=== PATIENT | male | born 1960 | race Caucasian/White ===

== ENCOUNTER 2019-05-16 09:52 | Emergency (ER) | payer OTHER ==
[~2019-05-16] VITALS: Ht 185.4 cm; Wt 104.3 kg
[~2019-05-16 09:52] MED LIST: HCTZ PO; LEVO125T8 PO; LISINOPRIL PO
[2019-05-16 10:00] VITALS: BP_SYST 158
--- NOTE | 2019-05-16 10:00 | NUR ---
Patient to ER bed [08] to gown for evaluation. Side rails up.
--- NOTE | 2019-05-16 10:05 | NUR ---
Pt brought by self, A&Ox4, pt presents to ER with open area and crushed injury on L ring, L middle finger after hand was caught between a chain binder and a bucket,mild bleeding and swelling noted, afebrile , skin pink and warm, cap refill <3 respirations even and unlabored.
[2019-05-16] MEDS ORDERED: DIPH-TET-PERTUS Vaccine 0.5 ML VIAL (ADACEL) I.M. ONE (10:15)
[2019-05-16] MEDS ORDERED: traMADol HCL HCL 50 MG TABLET (ULTRAM) PO ONE (10:15)
[2019-05-16] MEDS ORDERED: IBUPROFEN 600 MG TABLET PO ONE (10:15)
--- NOTE | 2019-05-16 10:15 | NUR ---
Piyush Cobb at bedside examining patient
--- NOTE | 2019-05-16 11:30 | NUR ---
Bleedng on L hand controlled, icepack placed on L hand , well tolerated.
[2019-05-16] MEDS ORDERED: CEFAZOLIN 2 GM IVPB PREMIX 50 ML IV ONE (12:00)
[2019-05-16] MEDS ORDERED: BACITRACIN 1 GM OINT TP ONE ×2 (12:18→13:28)
[2019-05-16] MEDS ORDERED: CEFAZOLIN 1 GM IVPB PREMIX 100 ML IV ONE (12:39)
[2019-05-16 12:42] LABS: BASOPHILS % (AUTO) 0.5 % (0.0-2.0); EOSINOPHILS # (AUTO) 0.1 K/uL (0.0-0.4); EOSINOPHILS % (AUTO) 1.2 % (0.0-4.0); HEMATOCRIT 47.2 % (36-54); HEMOGLOBIN 16.5 g/dL (14.0-18.0); LYMPHOCYTES # (AUTO) 1.4 K/uL (1.0-5.5); LYMPHOCYTES % (AUTO) 15.6 % (20.5-51.5); MEAN CORPUSCULAR HEMOGLOBIN 33 pg (27-31); MEAN CORPUSCULAR HGB CONC 35 % (32-36); MEAN CORPUSCULAR VOLUME 96 fL (79.0-98.0); MONOCYTES # (AUTO) 0.7 K/uL (0.0-1.0); MONOCYTES % (AUTO) 7.5 % (1.7-9.3); NEUTROPHILS # (AUTO) 6.8 K/uL (1.8-7.7); NEUTROPHILS % (AUTO) 75.2 % (40.0-70.0); PLATELET COUNT (AUTO) 202 K/uL (130-430); RED BLOOD CELL COUNT(AUTO) 4.94 MIL/uL (4.2-6.2); RED CELL DISTRIBUTION WIDTH 13.6 % (9.0-15.0); WHITE BLOOD COUNT (AUTO) 9.1 K/uL (4.8-10.8)
--- NOTE | 2019-05-16 12:45 | NUR ---
Dr. Fernandez at bedside examining patient.
[2019-05-16 12:55] LABS: CREATININE 1.05 mg/dL (0.55-1.30); POTASSIUM 4.1 mmol/L (3.5-5.1)
[2019-05-16 12:59] LABS: ALBUMIN 4.2 g/dL (3.4-4.8); TOTAL BILIRUBIN 0.6 mg/dL (0.0-1.0)
--- NOTE | 2019-05-16 13:40 | NUR ---
Patient given written and verbal discharge instructions and verbalizes understanding. ER MD discussed with patient the results and treatment provided. Patient in stable condition. ID arm band removed. IV catheter removed intact and dressing applied, no active bleeding. Rx of Ibuprofen and Tramadol given. Patient educated on pain management and to follow up with PMD. Pain Scale 3/10 tolerable for pt. Opportunity for questions provided and answered. Medication side effect fact sheet provided.
[2019-05-16 13:41] VITALS: BP_SYST 152
== END 2019-05-16 13:40 | disposition home or self-care (01) ==
LOC: SED 09:52
DX: S67.193A Crushing injury of left middle finger, initial encounter (principal); S67.195A Crushing injury of left ring finger, initial encounter; S67.197A Crushing injury of left little finger, initial encounter; S62.635A Displaced fracture of distal phalanx of left ring finger, initial encounter for closed fracture; S61.305A Unspecified open wound of left ring finger with damage to nail, initial encounter; S62.617A Displaced fracture of proximal phalanx of left little finger, initial encounter for closed fracture; Z85.850 Personal history of malignant neoplasm of thyroid; Z79.899 Other long term (current) drug therapy; I10 Essential (primary) hypertension; E07.9 Disorder of thyroid, unspecified; Y99.0 Civilian activity done for income or pay; Y93.89 Activity, other specified; Y92.89 Other specified places as the place of occurrence of the external cause
CPT/HCPCS: 36415; 73140; 80053; 83605; 85025; 87040; 90471; 90715; 96365; 99284; J0690 ×2

== ENCOUNTER 2021-01-25 11:42 | Emergency (ER) | payer OTHER ==
[~2021-01-25] VITALS: Ht 180.3 cm; Wt 79.4 kg
[2021-01-25] MEDS ORDERED: BALANCED SALT IRRIG SOLN 15 ML IO ONE (11:43)
[2021-01-25] MEDS ORDERED: FLUORESCEIN SODIUM 1 MG OPHTHALMIC STRIP OP ONE (11:43)
--- NOTE | 2021-01-25 11:45 | NUR ---
PT IMMEDIATELY PLACED AT [facility], DR RODRÍGUEZ CALLED TO BEDSIDE.
--- NOTE | 2021-01-25 11:45 | NUR ---
Patient to ER bed 5 to gown for evaluation. Side rails up.
--- NOTE | 2021-01-25 11:46 | NUR ---
AUREA Blake at bedside examining patient.
--- NOTE | 2021-01-25 11:47 | NUR ---
Pt came into ER with right eye pain 10/10. Pt reports he was trimming a delatorre and the sap of the delatorre got in his eye. Pt AAOX4 eye is red and puffy. Pt holding eye reporting 10/10 pain.
--- NOTE | 2021-01-25 11:48 | NUR ---
Pt at eye wash station washing eyes out.
[2021-01-25] MEDS ORDERED: PROPARACAINE (OPTHANINE 0.5%) 15 ML DROPS OP ONE (12:00)
--- NOTE | 2021-01-25 12:06 | NUR ---
Called Poison Control at [phone] and spoke with NUVIA. Per recommendations: CHECK FOR CORNEAL ABRASIONS, SUPPORTIVE CARE. . Dr. RODRÍGUEZ notified. Will continue to monitor patient. PER POISON CONTROL, THIS CAUSES SEVERE PAINA DN IRRITATION, DR RODRÍGUEZ AWARE
--- NOTE | 2021-01-25 13:06 | NUR ---
Rafi lens applied and 1L NS for irrigation per MD order
[2021-01-25] MEDS ORDERED: ERYEYE RIGHT EAR (14:18)
--- NOTE | 2021-01-25 14:28 | NUR ---
Dr. Petty at bedside performing eye examination.
[2021-01-25] MEDS ORDERED: OXYCODONE/ACETAMINOPHEN 5-325 TABLET PO ONE (14:30)
[2021-01-25] MEDS ORDERED: IBUP-1969 PO (14:46)
[2021-01-25] MEDS ORDERED: OXYC-128 PO (14:46)
[2021-01-25 15:03] VITALS: BP_SYST 135
--- NOTE | 2021-01-25 15:04 | NUR ---
Patient given written and verbal discharge instructions and verbalizes understanding. ER MD discussed with patient the results and treatment provided. Patient in stable condition. ID arm band removed. Rx of percocet and erythromycin and motrin given. Patient educated on pain management and to follow up with PMD. Pain Scale 0/10. Opportunity for questions provided and answered. Medication side effect fact sheet provided.
== END 2021-01-25 15:04 | disposition home or self-care (01) ==
LOC: SED 11:42
DX: S05.01XA Injury of conjunctiva and corneal abrasion without foreign body, right eye, initial encounter (principal); I10 Essential (primary) hypertension; Z79.899 Other long term (current) drug therapy; X58.XXXA Exposure to other specified factors, initial encounter; Y93.89 Activity, other specified; Y92.89 Other specified places as the place of occurrence of the external cause; Y99.8 Other external cause status
CPT/HCPCS: 99284